=== PATIENT | female | born 1995 | race Caucasian/White ===

== ENCOUNTER 2016-11-11 09:37 | Day surgery (SDC) | payer MEDICAID ==
--- OUTSIDE RECORDS SUMMARY | 2016-11-11 09:41 | XMS REPORT | Clinical Summary ---
:1995 Author Organization [facility] Address [place] [address] Care Team Providers Name Role Phone Unavailable Primary Care Provider Unavailable Source Comments This disclosure is being made pursuant to the [employer] program and maynot contain all information available regarding this patient.[facility] Allergies Not on File Current Medications Be aware that medications may not be up to date as of this document. Alwaysverify current medications with the patient. Not on file Active Problems Not on file Social History Tobacco Use Types Packs/Day Years Used Date Never Assessed Sex Assigned at Date Recorded Not on file Last Filed Vital Signs Not on file Plan of Treatment Date Type Specialty Care Team Description 12/22/2016 Appointment Neurology Ab Moran MD [address] [place] [id number] Health Maintenance Due Date Last Done Comments HPV Vaccine (F:[id number],M: 9-22) (1 of 3 - Female 3 Dose 11/20/2006 Series) CHLAMYDIA SCREENING 2011 Meningococcal Vaccine (1 of 1) 2011 Tetanus/Pertussis (1 - Tdap) 11/20/2014 INFLUENZA IMMUNIZATION (#1) 2016 Results Not on filefrom Last 3 Months
--- NOTE | 2016-11-11 10:43 | OR ---
Anesthesia Pre Procedure Eval Pre Procedure Evaluation: Last Vital Signs Temp 36.8 C 11/11/16 09:47 Pulse 93 11/11/16 09:47 Resp 16 11/11/16 09:47 BP 133/76 11/11/16 09:47 Pulse Ox 99 11/11/16 09:47 O2 Oxygen Delivery Method Room Air PRE PROCEDURE EVALUATION:: DATE: 11/11/2016 TIME: 10:30 INDICATIONS: Benign intracranial hypertension PAST MEDICAL HISTORY: No previous lumbar puncture. EXAM: Lungs clear to equal. Heart rate regular. Procedure risks and benefits were explained to and accepted by the patient. ASSESSMENT OF MEDICAL STATUS: No contraindication of lumbar puncture. PLANNED PROCEDURE : Lumbar puncture for CSF analysis and pressure measurements. Home Medications: HOME MEDICATIONS Amitriptyline HCl [Elavil] 10 mg PO HS 11/10/16 [Last Taken Unknown] Omeprazole [Prilosec] 20 mg PO DAILY 11/10/16 [Last Taken Unknown] SUMAtriptan SUCCINATE [Imitrex] 50 mg PO DAILY PRN 11/10/16 [Last Taken Unknown] acetaZOLAMIDE [Acetazolamide (Diamox)] 250 mg PO DAILY 11/10/16 [Last Taken Unknown]
--- NOTE | 2016-11-11 11:39 | OR ---
Anesthesia Procedure Note - Anesthesia Procedure Note Narrative: Vital Signs - Last Taken Temp 36.8 C 11/11/16 09:47 Pulse 93 11/11/16 09:47 Resp 16 11/11/16 09:47 BP 133/76 11/11/16 09:47 Pulse Ox 99 11/11/16 09:47 O2 Oxygen Delivery Method Room Air 11/11/16 11:32 ANESTHESIA PROCEDURE NOTE Date of procedure: 11/11/2016. Time of procedure: 1100. Performed by: Maxwell Talbot CRNA Grinding Machine Operator Portable: Delmy Ruiz RN . Preprocedure diagnosis: Benign intracranial hypertension. Headaches. Post procedure diagnosis: Same. Procedure: Lumbar puncture Indications: Headaches. CSF analysis.. Findings: Patient brought to operating room #2 then placed in a left lateral decubitus position. Her back was prepped with DuraPrep. Attempted dural puncture at L3 4 without success. Patient placed in the sitting position. Dura punctured at L3 4 with a 22-gauge Walters spinal needle. Patient returned to left lateral decubitus position. Opening pressure was measured at 14. There was a leakage of spinal fluid between the hub of the spinal needle and the extension tubing. Unable to tighten the loose fitting significantly enough to prevent the fluid from leaking. Question accuracy of opening pressure because of the defective tubing. Total of 13 mL of clear CSF was obtained. 2 mL each of the first 3 vials. 7 mL and the fourth vial. A separate lumbar puncture tray was opened in order to use the extension tubing from that Tray to measure closing pressure. Closing pressure was measured at 9. Spinal needle was removed intact. EBL: Minimal. Fluids: N/A. Specimen: N/A. Post procedure condition: The patient tolerated the procedure well. No complications were noted. Thank you for this consultation Maxwell Talbot CRNA
[2016-11-11 11:49] LABS: CSF Appearance Clear (CLEAR); CSF Color Colorless (COLORLESS); CSF RBC 3 /uL (0-10); CSF WBC 0 /uL (0-10)
[2016-11-11 12:09] VITALS: BP 112/72
== END 2016-11-11 09:38 | disposition home or self-care (01) ==
LOC: AMB 09:37
PROVIDERS: ATTEND Student in an Organized Health Care Education/Training Program
PROC: 009U3ZX Drainage of Spinal Canal, Percutaneous Approach, Diagnostic (ICD-10-PCS; principal; 2016-11-11 10:30)
DX: G93.2 Benign intracranial hypertension (principal)

== ENCOUNTER 2018-08-05 00:04 | Inpatient (IN) ==
[2018-08-05] MEDS ORDERED: OXYTOCIN/DEXTROSE 5%-WATER 30 UNITS/500 ML BAG IV ONE ×2 (00:12→13:51)
[2018-08-05] MEDS ORDERED: RINGER'S SOLUTION,LACTATED 1,000 ML IV ONE (00:12)
[2018-08-05] MEDS ORDERED: MISOPROSTOL 100 MCG TABLET VG PRN (00:12)
[2018-08-05] MEDS ORDERED: ONDANSETRON 4 MG TAB.RAPDIS PO PRN (00:12)
[2018-08-05] MEDS ORDERED: DEXTROSE 5%-LACTATED RINGERS 1,000 ML IV PRN (00:12)
[2018-08-05 01:25] LABS: Cocaine Ur Negative (NEGATIVE); Urine Barbiturate Negative (NEGATIVE); Urine Benzodiazepines Negative (NEGATIVE); Urine Opiates Negative (NEGATIVE); Urine PCP Negative (NEGATIVE); Urine THC Negative (NEGATIVE)
[2018-08-05] MEDS ORDERED: NALOXONE HCL 1 MG/1 ML SYRG IV PRN (05:28)
[2018-08-05] MEDS ORDERED: ONDANSETRON HCL/PF 2 MG/ML VIAL IV PRN (05:28)
[2018-08-05] MEDS ORDERED: BUPIVACAINE HCL/0.9 % NACL/PF 250 ML EP PRN (05:28)
[2018-08-05] MEDS ORDERED: fentaNYL CITRATE/PF 50 MCG/ML AMPUL IT SCH (05:30)
[2018-08-05] MEDS ORDERED: LIDOCAINE HCL/EPINEPHRINE 20 ML VIAL ONE (06:21)
[2018-08-05] MEDS ORDERED: LIDOCAINE HCL/EPINEPHRINE 20 ML VIAL IJ ONE (06:21)
--- NOTE | 2018-08-05 06:42 | ANES ---
Anesthesia Pre Procedure Eval Vitals/Labs: Last Vital Signs Temp 36.4 C 08/05/18 06:39 Pulse 76 08/05/18 06:39 Resp 18 08/05/18 06:39 BP 130/60 08/05/18 06:39 Pulse Ox 99 08/05/18 06:39 HOME MEDICATIONS metronidazole 500 mg tablet 500 mg PO BID #14 tab 08/02/18 [Last Taken Unknown] Allergies/Adverse Reactions: Allergies Allergy/AdvReac Type Severity Reaction Status Date / Time No Known Allergies Allergy Verified 08/05/18 00:46 - Planned Procedure Planned Procedure: ELECTIVE INDUCTION 39 WKS Medication List Reviewed:: Yes Allergies Verified: Yes Medical History (Updated 07/17/18 @ 16:07 by Azam De Jesus MD) Allergic rhinitis Fibroadenoma of left breast Intracranial hypertension Nasal septal deviation Otitis media with effusion [place] teeth extracted Onset Date: ~2012 Surgical History (Updated 07/17/18 @ 16:07 by Azam De Jesus MD) H/O adenoidectomy Onset Date: ~2013 H/O myringotomy Onset Date: ~2013 bilat History of nasal surgery Onset Date: ~2016 deviated septum Hx of tonsillectomy Onset Date: ~2013 Family History (Updated 01/02/18 @ 09:21 by Alyce Ledesma RN) Mother Diverticulosis Father Diabetes Hypertension Hyperlipemia Obesity Depression Anxiety - Family Anesthesia History Family History:: no untoward family reactions to anesthesia, no familial bleeding tendencies, no family history of clotting disorders, no family history of premature - Airway/Neck/Teeth Within Normal Limits:: Yes Teeth Condition: intact Neck Exam: full range of motion Mallampatti Score: 2 Thyromental (T-M) distance: > 6 cm Mandibulo Hyoid distance: > 3 cm - Respiratory Respiratory Physical: lungs clear Smoking Status: Current every day smoker Discussed smoking cessation including day of surgery: Yes - last ciggarrette just prior to admission Sleep Apnea currently treated: No Sleep Apnea by current assessment: No - Cardiovascular Tolerate Activity: Fair Heart Sounds: S1 & S2, Regular - Anesthesia Assessment and Plan ASA Class: PS, II, E Anesthesia Type Plan: Epidural - CSE for labor analgesia
--- NOTE | 2018-08-05 06:55 | ANES ---
Anesthesia Procedure Note Procedure Note: ANESTHESIA PROCEDURE NOTE Date of Procedure: 08/05/2018 Time of procedure: 6:15 AM. Performed by: Alberto Loja CRNA, MSN Brake Lining Driller: Cydney Nieto RN. Preprocedure diagnosis: Active labor, labor pain. Post procedure diagnosis: Same. Procedure:Epidural for labor analgesia L3 4. Indications: Labor pain. Findings: See below. Details of the procedure: The patient was placed on the side of the bed in sitting positionand prepped with DuraPrep then draped in a sterile fashion. Lidocaine 1% was infiltrated to the skin and subcutaneous tissues at the level of the L3 4 interspace. Ms. Clark was quite animated and apparently unable to concentrate well regarding the task at hand. She currently had the same pain caused labor on the injection of local anesthesia, as well as with simple maneuvers with no physiological basis for eliciting noxious stimuli. After multiple attempts to achieve an adequate and consistent position without success, an 18-gauge Touhy needle was used to approach the epidural space with loss of resistance technique. Once loss of resistance was achieved a 27-gauge spinal needle was passed through the epidural needle and CSF was contacted. After CSF returned, 20 mcg of fentanyl was injected in the spinal needle was removed the epidural catheter was then threaded approximately 4 cm in the epidural needle was removed. The catheter was taped in place and after careful aspiration 3 mL of 2% lidocaine with 1-200,000 epinephrine was injected without change in maternal heart rate or sensorium. . EBL: Minimal. Fluids: N/A. Specimen: N/A. Post procedure condition: The procedure went remarkably well considering the conditions during administration and Ms. Clark was provided good relief. No complications were noted. Thank you for this consultation. Alberto Loja CRNA, MSN
--- NOTE | 2018-08-05 07:01 | ANES ---
Post Anesthesia Assessment - Vital Signs Vitals: Last Vital Signs Temp 36.4 C 08/05/18 06:39 Pulse 76 08/05/18 06:39 Resp 18 08/05/18 06:39 BP 130/60 08/05/18 06:39 Pulse Ox 99 08/05/18 06:39 Airway Patency: Normal - Mental Status Level Of Consciousness: Awake, Alert, Appropriate - Pain Level Pain Score: 0 - N/V Assessment Nausea/Vomiting Presence: None Dehydration:: No
--- NOTE | 2018-08-05 11:54 | HP ---
Chief Complaint - Chief Complaint Date of Service: 08/05/18 Time of Service: 11:43 Chief Complaint: induction of labor History of Present Illness: 22 yo at 39 wks presents for induction of labor due to intracranial hypertension. This complicated by intracranial hypertension and smoker. Rh positive Rubella immune GBS negative Medical History (Updated 07/17/18 @ 16:07 by Azam De Jesus MD) Allergic rhinitis Fibroadenoma of left breast Intracranial hypertension Nasal septal deviation Otitis media with effusion [place] teeth extracted Onset Date: ~2012 Surgical History: Surgical History (Updated 07/17/18 @ 16:07 by Azam De Jesus MD) H/O adenoidectomy Onset Date: ~2013 H/O myringotomy Onset Date: ~2013 bilat History of nasal surgery Onset Date: ~2016 deviated septum Hx of tonsillectomy Onset Date: ~2013 Family History: Family History (Updated 01/02/18 @ 09:21 by Alyce Ledesma RN) Mother Diverticulosis Father Diabetes Hypertension Hyperlipemia Obesity Depression Anxiety Social History: Preferred Language Korean Smoking Status Current every day smoker Smoking packs per day 0.5 (Last Reviewed 08/02/18 @ 10:34 by Janell Santoyo RN) No Social History Section defined Review Of Systems (GEN) - Review of Systems Generalized/Overall Review: Present: No Symptoms Reported EENTM: Present: No Symptoms Reported Respiratory: Present: No Symptoms Reported Cardiac: Present: No Symptoms Reported Abdominal: Present: No Symptoms Reported Genitourinary: Present: No Symptoms Reported Musculoskeletal: Present: No Symptoms Reported Neurological: Present: No Symptoms Reported Skin: Present: No Symptoms Reported Endocrine: Present: No Symptoms Reported Immunizations: IMMUNIZATION HX Immunizations Up to Date Yes Allergies/Adverse Reactions: Allergies Allergy/AdvReac Type Severity Reaction Status Date / Time No Known Allergies Allergy Verified 08/05/18 00:46 Home Medications: HOME MEDICATIONS metronidazole 500 mg tablet 500 mg PO BID #14 tab 08/02/18 [Last Taken Unknown] Exam - Exam Vital Signs: Vital Signs - Last Taken Temp 36.4 C 08/05/18 06:39 Pulse 76 08/05/18 06:39 Resp 18 08/05/18 06:39 BP 130/60 08/05/18 06:39 Pulse Ox 99 08/05/18 06:39 Constitutional: Present: Alert, Oriented x3, Cooperative, No distress ENT Exam: Present: hearing grossly normal Breasts: Present: Exam deferred Respiratory: Present: lungs clear, no respiratory distress Cardiovascular/Chest: Present: regular rate, rhythm Abdomen: Present: soft, nontender, no rebound tenderness, other - gravid /Rectal: Present: Other - cervix 1-2/60/-3 Extremity: Present: no pedal edema, no calf tenderness Skin Exam: Present: normal color, warm/dry, no cyanosis Lymphatic: Present: no adenopathy Neurologic: Present: alert, normal mood/affect, oriented x 3 Appearance: Present: appropriate appearance Eye contact: Present: cooperative, good eye contact Thoughts: Present: normal thought pattern Diagnostic Studies: Laboratory Results Negative (NEGATIVE) 08/05/18 01:00 Negative (NEGATIVE) 08/05/18 01:00 Ur Phencyclidine Scrn Negative (NEGATIVE) 08/05/18 01:00 Urine Amphetamine Negative (NEGATIVE) 08/05/18 01:00 U Benzodiazepines Scrn Negative (NEGATIVE) 08/05/18 01:00 Negative (NEGATIVE) 08/05/18 01:00 Negative (NEGATIVE) 08/05/18 01:00 Assessment/Plan - Assessment/Plan (1) Encounter for induction of labor Assessment: Admit for induction of labor. Epidural PRN. Problem: Acute (2) Intracranial hypertension, benign Problem: Chronic (3) Smoker Problem: Chronic
[2018-08-05] MEDS ORDERED: LIDOCAINE HCL 50 ML VIAL ONE (13:28)
[2018-08-05] MEDS ORDERED: GLYCERIN/WITCH HAZEL LEAF 40 APPL BOX TP PRN (13:51)
[2018-08-05] MEDS ORDERED: HYDROCORTISONE 30 APPL TUBE TP PRN (13:51)
[2018-08-05] MEDS ORDERED: oxyCODONE HCL/ACETAMINOPHEN 1 TAB TABLET PO PRN (13:51)
[2018-08-05] MEDS ORDERED: BISACODYL 10 MG SUPP.RECT RC PRN (13:51)
[2018-08-05] MEDS ORDERED: BENZOCAINE/MENTHOL 81 SPRAY CAN TP PRN (13:51)
[2018-08-05] MEDS ORDERED: SENNOSIDES 8.6 MG TABLET PO PRN (13:51)
--- NOTE | 2018-08-05 13:59 | OR ---
Operative Report - Dictated Report Narrative: Spontaneous vaginal delivery of vigorously crying viable female at 1321 on 89 teen with Apgars 8 and 9, weighing 3744 g in MARK position. Cord clamping delayed approximately 1 minute Placenta delivered complete, intact, with three vessel cord Estimated blood loss: 200 mL Anesthesia: epidural Lacerations: Second-degree vaginal laceration (4 cm) repaired with 3-0 Vicryl Rapide
[2018-08-05] MEDS: metroNIDAZOLE 500 MG TABLET PO SCH ×2 (14:00→20:45)
[2018-08-05] MEDS: oxyCODONE HCL/ACETAMINOPHEN 1 TAB TABLET PO PRN (20:41)
[2018-08-05] MEDS: DOCUSATE SODIUM 100 MG CAPSULE PO SCH (20:42)
[2018-08-05] MEDS: IBUPROFEN 800 MG TABLET PO PRN (20:42)
[2018-08-06] MEDS: oxyCODONE HCL/ACETAMINOPHEN 1 TAB TABLET PO PRN ×2 (03:03→12:42)
[2018-08-06] MEDS: IBUPROFEN 800 MG TABLET PO PRN ×2 (03:03→12:42)
--- NOTE | 2018-08-06 08:33 | PN ---
Subjective - Date and Time Seen Date: 08/06/18 Time: 08:32 Objective - Vitals Vitals: Last Vital Signs Temp 36.5 C 08/06/18 07:00 Pulse 78 08/06/18 07:00 Resp 18 08/06/18 07:00 BP 119/67 08/06/18 07:00 Pulse Ox 99 08/06/18 07:00 Patient denies complaints. Breast-feeding - having some difficulty with baby is latching on Lochia wnl Abdomen - soft, nontender Uterus - firm, at umbilicus - 1 No calf tenderness Impression: day #1 - s/p spontaneous vaginal delivery. Plan: Continue routine care. Nurses to work with mother on breast- feeding Cauti Physician Documentation - Urinary Catheter Management Urethral ([place]) Date of Insertion: 08/05/18 Time of Insertion: 06:55 Date of Removal: 08/05/18 Time of Removal: 13:15 Assessment/Plan - Problems/Diagnosis (1) Encounter for induction of labor Problem: Acute (2) Intracranial hypertension, benign Problem: Chronic (3) Smoker Problem: Chronic
[2018-08-06] MEDS: metroNIDAZOLE 500 MG TABLET PO SCH ×2 (10:05→20:37)
[2018-08-06] MEDS: DOCUSATE SODIUM 100 MG CAPSULE PO SCH ×2 (10:05→20:37)
[2018-08-07 07:00] VITALS: BP 120/77
[2018-08-07] MEDS: DOCUSATE SODIUM 100 MG CAPSULE PO SCH (08:18)
[2018-08-07] MEDS: metroNIDAZOLE 500 MG TABLET PO SCH (08:18)
--- NOTE | 2018-08-07 09:15 | PN ---
Subjective - Date and Time Seen Date: 08/07/18 Time: 09:15 Objective - Vitals Vitals: Last Vital Signs Temp 36.4 C 08/07/18 06:57 Pulse 90 08/07/18 06:57 Resp 16 08/07/18 06:57 BP 120/77 08/07/18 06:57 Pulse Ox 97 08/07/18 06:57 Patient denies complaints. Lochia wnl Abdomen - soft, nontender Uterus - firm, at umbilicus - 2 No calf tenderness Impression: day #2 - s/p spontaneous vaginal delivery. Plan: Routine discharge instructions Cauti Physician Documentation - Urinary Catheter Management Urethral ([place]) Date of Insertion: 08/05/18 Time of Insertion: 06:55 Date of Removal: 08/05/18 Time of Removal: 13:15 Assessment/Plan - Problems/Diagnosis (1) Encounter for induction of labor Problem: Acute (2) Intracranial hypertension, benign Problem: Chronic (3) Smoker Problem: Chronic
[2018-08-07] MEDS: oxyCODONE HCL/ACETAMINOPHEN 1 TAB TABLET PO PRN (13:26)
--- NOTE | 2018-08-10 16:43 | PN ---
Progess Note - Interim Date: 08/10/18 Time: 16:43 History for MU Definition: * The number of deliveries resulting in a live the patient experienced prior to current hospitalization * The previous delivery of live twins or any live multiple gestation is considered one live event. *If primagravida or nulliparous is documented select zero for the number of previous live births. Live Events: 0
== END 2018-08-07 13:35 | disposition home or self-care (01) | DRG 805 ==
LOC: OB 00:04
PROVIDERS: ADMIT Obstetrics & Gynecology; ATTEND Obstetrics & Gynecology
CPT/HCPCS: 59025; 80307; 88307